=== PATIENT | male | born 1935 | race Asian ===

== ENCOUNTER 2017-01-12 17:22 | Inpatient (IN) | payer BC, OTHER ==
[~2017-01-12] VITALS: Ht 167.6 cm; Wt 65.4 kg
[~2017-01-12 17:22] MED LIST: ASPI81TA28 PO; CALC600T PO; CHOL100010 PO; GLUC15002 PO; LISI-461 PO; LPT40 PO; MULT-513 PO; PLV75 PO
[2017-01-12] MEDS ORDERED: SODIUM CHLORIDE 0.9% 1000ML 1,000 ML IV STA (17:42)
[2017-01-12] MEDS ORDERED: SODIUM CHLORIDE 0.9% 1000ML 500 ML IV STA (17:42)
--- NOTE | 2017-01-12 17:52 | EMERGENCY ROOM VISIT NOTE ---
History Report prepared by Leatha: Juan Phipps Under the Supervision of: Dr. Bayron Oneil M.D. First contact with patient: 17:33 Chief Complaint: DIZZY Stated Complaint: CHEST PAIN, SOB, PALE SKIN History of Present Illness The patient is a 81 year old male who presents to the Emergency Room with complaints of intermittent dizziness beginning three days ago. He states that he has felt very tired for the past three days as well. He states that his dizziness is generally present when he is walking around. The patient states that he had a "very dark" bowel movement two days ago. He has not had a bowel movement since. He has no history of GI bleeding. The patient is on Plavix and aspirin. He had a cardiac stent placed three years ago. He currently feels short of breath. He denies any chest pain, or abdominal pain. The patient's notes that the patient appears very pale. The patient has no history of blood transfusions. Source of History: patient Onset: Three days ago Quality: other (dizziness) Timing: intermittent Modifying Factors (Worsening): other (walking around) Associated Symptoms: + SOB, + fatigue, No abdominal pain, No chest pain Review of Systems See HPI for pertinent positives & negatives. A total of 10 systems reviewed and were otherwise negative. Past Medical & Surgical Medical Problems: (1) Diverticulosis Colon (W/O Ment Of Hemorrhage) (2) Osteoporosis Nos Surgical Problems: (1) History of cholecystectomy Family History Diabetes mellitus Heart disease Social History Smoking Status: Never Smoker Alcohol Use: occasionally Marital Status: Housing Status: lives with family Occupation Status: retired Current/Historical Medications Scheduled Aspirin (Aspirin Ec), 81 MG PO DAILY Atorvastatin (Atorvastatin Calcium), 40 MG PO QAM Calcium Carbonate (Calcium 600), 1 TAB PO DAILY Cholecalciferol (Vitamin D3), 2 TAB PO DAILY Clopidogrel (Plavix), 75 MG PO DAILY Tcwyahmqfac-Avtvkvatflb-Zat C- (Glucosamine 1500 Complex), 1 CAP PO DAILY Lisinopril (Lisinopril), 1 MG PO QPM Multivitamins/Minerals (Mvi With Minerals), 1 TAB PO DAILY Allergies Coded Allergies: NO KNOWN DRUG ALLERGIES (Verified Allergy, Unknown, none, 04/22/14) Physical Exam Vital Signs Date Time Temp Pulse Resp B/P Pulse Ox O2 Delivery O2 Flow Rate FiO2 01/12/17 18:47 76 16 108/59 99 Room Air 01/12/17 17:31 36.7 76 20 134/59 99 Room Air Physical Exam GENERAL: Patient is in no acute distress. HEENT: No acute trauma, normocephalic atraumatic, mucous membranes moist, no nasal congestion, no scleral icterus. NECK: No stridor, no adenopathy, no meningismus, trachea is midline. LUNGS: Clear to auscultation bilaterally, no wheeze, no rhonchi, breath sounds equal. HEART: Without murmurs gallops or rubs, regular rate and rhythm. ABDOMEN: Soft, nontender, bowel sounds positive, no hernias, no peritonitis. RECTAL: Black heme positive stool. EXTREMITIES: No cyanosis or edema, full range of motion of all the joints without pain or difficulty, no signs for acute trauma. NEUROLOGIC: Oriented x 3, no acute motor or sensory deficits, no focal weakness. SKIN: No rash, no jaundice, no diaphoresis. Medical Decision & Procedures ER Provider Diagnostic Interpretation: X-ray results as stated below per interpretation by me and the radiologist: CHEST ONE VIEW PORTABLE FINDINGS: The bones soft tissues and hemidiaphragms are normal. The cardiomediastinal silhouette is normal. The lungs are clear. The pulmonary vasculature is normal. IMPRESSION: Negative chest. Electronically signed by: Juan Daniel Villarreal M.D. Laboratory Results 01/12/17 18:00 Red Blood Count 2.78, Mean Corpuscular Volume 95.7, Mean Corpuscular Hemoglobin 32.0, Mean Corpuscular Hemoglobin Concent 33.5, Mean Platelet Volume 11.0, Neutrophils (%) (Auto) 84.9, Lymphocytes (%) (Auto) 11.1, Monocytes (%) (Auto) 3.8, Eosinophils (%) (Auto) 0.0, Basophils (%) (Auto) 0.1, Neutrophils # (Auto) 6.29, Lymphocytes # (Auto) 0.82, Monocytes # (Auto) 0.28, Eosinophils # (Auto) 0.00, Basophils # (Auto) 0.01 01/12/17 18:00 Test 01/12/17 18:00 White Blood Count 7.41 K/uL (4.8-10.8) Red Blood Count 2.78 M/uL (4.7-6.1) Hemoglobin 8.9 g/dL (14.0-18.0) Hematocrit 26.6 % (42-52) Mean Corpuscular Volume 95.7 fL (80-100) Mean Corpuscular Hemoglobin 32.0 pg (25-34) Mean Corpuscular Hemoglobin Concent 33.5 g/dl (32-36) Platelet Count 210 K/uL (130-400) Mean Platelet Volume 11.0 fL (7.4-10.4) Neutrophils (%) (Auto) 84.9 % Lymphocytes (%) (Auto) 11.1 % Monocytes (%) (Auto) 3.8 % Eosinophils (%) (Auto) 0.0 % Basophils (%) (Auto) 0.1 % Neutrophils # (Auto) 6.29 K/uL (1.4-6.5) Lymphocytes # (Auto) 0.82 K/uL (1.2-3.4) Monocytes # (Auto) 0.28 K/uL (0.11-0.59) Eosinophils # (Auto) 0.00 K/uL (0-0.5) Basophils # (Auto) 0.01 K/uL (0-0.2) RDW Standard Deviation 43.2 fL (36.4-46.3) RDW Coefficient of Variation 12.7 % (11.5-14.5) Immature Granulocyte % (Auto) 0.1 % Immature Granulocyte # (Auto) 0.01 K/uL (0.00-0.02) Hypersegmented Polys 1+ Polychromasia 1+ Anisocytosis PRESENT Anion Gap 7.0 mmol/L (3-11) Est Creatinine Clear Calc Drug Dose 47.5 ml/min Estimated GFR () 72.6 Estimated GFR (Non- 62.6 BUN/Creatinine Ratio 32.9 (10-20) Calcium Level 8.6 mg/dl (8.5-10.1) Total Bilirubin 0.4 mg/dl (0.2-1) Direct Bilirubin 0.2 mg/dl (0-0.2) Aspartate Amino Transf (AST/SGOT) 27 U/L (15-37) Alanine Aminotransferase (ALT/SGPT) 38 U/L (12-78) Alkaline Phosphatase 43 U/L (45-117) Troponin I < 0.015 ng/ml (0-0.045) Total Protein 6.8 gm/dl (6.4-8.2) Albumin 3.6 gm/dl (3.4-5.0) Laboratory results reviewed by me. Medications Administered Medications (Trade) Dose Ordered Sig/Ines Route Start Time Stop Time Status Last Admin Dose Admin Sodium Chloride 500 ml @ 999 mls/hr Q31M STAT IV 01/12/17 17:42 01/12/17 18:12 DC 01/12/17 17:42 999 MLS/HR Pantoprazole Sodium 80 mg/ Dextrose 120 ml @ 480 mls/hr TODAY@1800 IV 01/12/17 18:00 01/12/17 18:14 DC 01/12/17 18:25 480 MLS/HR Pantoprazole Sodium/Dextrose (Protonix Inj/D5 100ml) 100 ml @ 20 mls/hr Q5H IV 01/12/17 18:15 01/12/17 23:14 01/12/17 18:46 20 MLS/HR ECG Indication: other (dizziness) Rate (beats per minute): 72 Rhythm: normal sinus Findings: no acute ischemic change, no ectopy ED Course 1736: The patient was evaluated in room B10. A complete history and physical exam was performed. 1742: Ordered Protonix IV Bolus/Drip, Sodium Chloride 1000 ml @ 200 mls/hr IV, Sodium Chloride 500 ml @ 999 mls/hr IV. 1800: Ordered Pantoprazole Sodium 80 mg/Dextrose 120 ml @ 480 mL/hr IV. 1815: Ordered Pantoprazole Sodium 40 mg/Dextrose 100 mL @ 20 mL/hr IV. 1845: Upon reexamination the patient is resting comfortably. I discussed results and treatment plan with the patient. He verbalizes agreement and understanding. The patient will be evaluated for further management. 1850: The patient gave consent to receive a blood transfusion if it is needed. Medical Decision The patient is a 81 year old male who presents to the ED with complaints of dizziness. Differential diagnoses considered include upper or lower GI bleeding , anemia, cardiac ischemia, electrolyte imbalance, coagulopathy, and dysrhythmia. There is no leukocytosis. The patient is anemic with a hemoglobin of 8.9. This hemoglobin drop is consistent with GI bleeding. There is no significant electrolyte abnormality, kidney failure or hepatitis. EKG shows a normal sinus rhythm, no acute ischemia. Cardiac enzyme testing times one is not consistent with acute cardiac injury. Chest x-ray does not show mediastinal widening, heart failure or free air. Rectal exam showed black stool, heme-positive. The patient presents with some lightheadedness, dizziness, fatigue and black stool. He appears to be suffering from an upper GI bleed. The patient received IV saline, IV Protonix. He was made nothing by mouth. He is doing well at the present. Admission/observation is warranted. I did consent the patient for blood products if needed, at this point, a transfusion is not required. I talked to the patient and to case management. The on-call hospitalist was consulted. Medication Reconciliation: I attest that I have personally reviewed the patient' s current medication list. Blood Pressure Screening: Patient was found to have an elevated blood pressure and was referred to their primary doctor for recheck and further treatment. Consults Time Called: 1840 Consulting Physician: Dr. Jersey RAY Returned Call: 1845 Discussed the patient's case. The patient will be evaluated for further management. Impression Primary Impression: GI bleed Additional Impression: Anemia Scribe Attestation The scribe's documentation has been prepared under my direction and personally reviewed by me in its entirety. I confirm that the note above accurately reflects all work, treatment, procedures, and medical decision making performed by me. Departure Information Dispostion Being Evaluated By Hospitalist Referrals ,Feng Schultz M.D. (PCP) Patient Instructions My [facility] Problem Qualifiers
[2017-01-12] MEDS ORDERED: PANTOprazole INJ 80 MG in DEXTROSE 5% 100ML IV SCH (18:00)
--- NOTE | 2017-01-12 18:05 | DIAGNOSTIC IMAGING REPORT ---
CHEST ONE VIEW PORTABLE CLINICAL HISTORY: EVALUATE GI BLEED dyspnea COMPARISON STUDY: 04/22/2014 FINDINGS: The bones soft tissues and hemidiaphragms are normal. The cardiomediastinal silhouette is normal. The lungs are clear. The pulmonary vasculature is normal. IMPRESSION: Negative chest. Electronically signed by: Juan Daniel Villarreal M.D. 01/12/2017 6:04 PM Dictated Date/Time: 01/12/2017 6:03 PM
[2017-01-12] MEDS ORDERED: CHOL1000 PO ×2 (18:08)
[2017-01-12] MEDS ORDERED: CLOP1TAB15 PO (18:08)
[2017-01-12] MEDS ORDERED: LISI-461 PO (18:08)
[2017-01-12 18:10] LABS: BASO % 0.1 %; BASO ABS # 0.01 K/uL (0-0.2); HEMATOCRIT 26.6 % (42-52); IG% 0.1 %; LYMPH % 11.1 %; LYMPH ABS # 0.82 K/uL (1.2-3.4); MEAN CELL VOLUME 95.7 fL (80-100); MEAN CORPUSCULAR HGB CONC 33.5 g/dl (32-36); MONO % 3.8 %; NEUT % 84.9 %; PLATELET COUNT 210 K/uL (130-400); RED BLOOD COUNT 2.78 M/uL (4.7-6.1); WHITE BLOOD COUNT 7.41 K/uL (4.8-10.8)
[2017-01-12] MEDS ORDERED: PANTOprazole INJ 40 MG in DEXTROSE 5% 100ML IV SCH (18:15)
[2017-01-12 18:29] LABS: ALT/SGPT 38 U/L (12-78); AST/SGOT 27 U/L (15-37); BLOOD UREA NITROGEN 36 mg/dl (7-18); BUN/CREATININE RATIO 32.9 (10-20); CALCIUM 8.6 mg/dl (8.5-10.1); CARBON DIOXIDE 26 mmol/L (21-32); CHLORIDE 111 mmol/L (98-107); GLUCOSE 105 mg/dl (70-99); POTASSIUM 4.3 mmol/L (3.5-5.1); SODIUM 144 mmol/L (136-145)
[2017-01-12 18:34] LABS: ALKALINE PHOSPHATASE 43 U/L (45-117)
[2017-01-12 18:35] LABS: ANISOCYTOSIS PRESENT; COMPLETE YES; HYPERSEGMENTED POLYS 1+; POLYCHROMASIA 1+
[2017-01-12 19:15] LABS: INR 0.9 (0.9-1.1); PARTIAL THROMBOPLASTIN RATIO 0.8; PROTHROMBIN TIME (PATIENT) 10.1 SECONDS (9.0-12.0)
[2017-01-12] MEDS ORDERED: ONDANSETRON INJ 2 MG/ML 2 ML VIAL IV PRN (20:00)
[2017-01-12] MEDS ORDERED: MAGNESIUM HYDROXIDE SUSP 30 ML UDC PO PRN (20:00)
[2017-01-12] MEDS ORDERED: ACETAMINOPHEN 325 MG TAB PO PRN (20:00)
--- NOTE | 2017-01-12 20:00 | History and Physical ---
History & Physical Date & Time of Service: January 12, 2017 at 19:52 Chief Complaint: Chest Pain, Sob, Pale Skin Primary Care Physician: Feng Blount M.D. History of Present Illness Source: patient 81 y/o M c/o lightheadedness. Pt states this started about 3 days ago. On Monday, he noted that his bowel movement was black. No abd pain, n/v/d. He has not had a bowel movement since that time. He generally plays golf 2-3x/week , but has not felt like it. He has been eating without issue. Had breakfast and lunch today without issue. His main concern now is that he is very thirsty. Pt denies fever, SOB, chest pain, LE pain or swelling. No prior hx of bleeding. ROS as noted above, otherwise neg. Past Medical/Surgical History Medical Problems: (1) Diverticulosis Colon (W/O Ment Of Hemorrhage) Status: Chronic (2) Osteoporosis Nos Status: Chronic Surgical Problems: (1) History of cholecystectomy Status: Resolved CAD s/p [place] with stents in 2013, on aspirin/plavix Family History Family history was reviewed; no changes noted. Social History Smoking Status: Never Smoker Alcohol Use: occasionally (1 beer daily at lunch) Drug Use: none Marital Status: Occupational Status: retired Multi-Drug Resistant Organisms History of MDRO: No Allergies Coded Allergies: NO KNOWN DRUG ALLERGIES (Verified Allergy, Unknown, none, 04/22/14) Home Medications Scheduled Aspirin (Aspirin Ec), 81 MG PO DAILY Atorvastatin (Atorvastatin Calcium), 40 MG PO QAM Calcium Carbonate (Calcium 600), 1 TAB PO DAILY Cholecalciferol (Vitamin D3), 2 TAB PO DAILY Clopidogrel (Plavix), 75 MG PO DAILY Levlkzkmypg-Ohpwrsskecb-Lvj C- (Glucosamine 1500 Complex), 1 CAP PO DAILY Lisinopril (Lisinopril), 1 MG PO QPM Multivitamins/Minerals (Mvi With Minerals), 1 TAB PO DAILY Physical Exam Vital Signs Date Time Temp Pulse Resp B/P Pulse Ox O2 Delivery O2 Flow Rate FiO2 01/12/17 19:43 80 18 99/54 97 Room Air 01/12/17 18:47 76 16 108/59 99 Room Air 01/12/17 17:31 36.7 76 20 134/59 99 Room Air General Appearance: WD/WN, no apparent distress Head: normocephalic, atraumatic Respiratory/Chest: normal breath sounds, no respiratory distress Cardiovascular: regular rate, rhythm, no edema Abdomen/GI: non tender, soft Extremities/Musculoskelatal: no calf tenderness, no pedal edema Neurologic/Psych: alert, normal mood/affect Skin: normal color, warm/dry Diagnostics Laboratory Results Results Past 24 Hours Test 01/12/17 18:00 Range/Units White Blood Count 7.41 4.8-10.8 K/uL Red Blood Count 2.78 4.7-6.1 M/uL Hemoglobin 8.9 14.0-18.0 g/dL Hematocrit 26.6 42-52 % Mean Corpuscular Volume 95.7 80-100 fL Mean Corpuscular Hemoglobin 32.0 25-34 pg Mean Corpuscular Hemoglobin Concent 33.5 32-36 g/dl Platelet Count 210 130-400 K/uL Mean Platelet Volume 11.0 7.4-10.4 fL Neutrophils (%) (Auto) 84.9 % Lymphocytes (%) (Auto) 11.1 % Monocytes (%) (Auto) 3.8 % Eosinophils (%) (Auto) 0.0 % Basophils (%) (Auto) 0.1 % Neutrophils # (Auto) 6.29 1.4-6.5 K/uL Lymphocytes # (Auto) 0.82 1.2-3.4 K/uL Monocytes # (Auto) 0.28 0.11-0.59 K/uL Eosinophils # (Auto) 0.00 0-0.5 K/uL Basophils # (Auto) 0.01 0-0.2 K/uL RDW Standard Deviation 43.2 36.4-46.3 fL RDW Coefficient of Variation 12.7 11.5-14.5 % Immature Granulocyte % (Auto) 0.1 % Immature Granulocyte # (Auto) 0.01 0.00-0.02 K/uL Hypersegmented Polys 1+ Polychromasia 1+ Anisocytosis PRESENT Prothrombin Time 10.1 9.0-12.0 SECONDS Prothromb Time International Ratio 0.9 0.9-1.1 Activated Partial Thromboplast Time 19.8 21.0-31.0 SECONDS Partial Thromboplastin Ratio 0.8 Sodium Level 144 136-145 mmol/L Potassium Level 4.3 3.5-5.1 mmol/L Chloride Level 111 98-107 mmol/L Carbon Dioxide Level 26 21-32 mmol/L Anion Gap 7.0 3-11 mmol/L Blood Urea Nitrogen 36 7-18 mg/dl Creatinine 1.10 0.60-1.40 mg/dl Est Creatinine Clear Calc Drug Dose 47.5 ml/min Estimated GFR () 72.6 Estimated GFR (Non- 62.6 BUN/Creatinine Ratio 32.9 10-20 Random Glucose 105 70-99 mg/dl Calcium Level 8.6 8.5-10.1 mg/dl Total Bilirubin 0.4 0.2-1 mg/dl Direct Bilirubin 0.2 0-0.2 mg/dl Aspartate Amino Transf (AST/SGOT) 27 15-37 U/L Alanine Aminotransferase (ALT/SGPT) 38 12-78 U/L Alkaline Phosphatase 43 45-117 U/L Troponin I < 0.015 0-0.045 ng/ml Total Protein 6.8 6.4-8.2 gm/dl Albumin 3.6 3.4-5.0 gm/dl CXR normal Impression Assessment and Plan 81 y/o M who was admitted on 01/12 with UGIB UGIB: noted for black stool on Monday, but none since. Possibly resolved, possibly related to asp/plavix use Hb 8.9 in the ED, will monitor on tele for possible drop given heme + in ED Pt was consented for blood by ED physician Repeat Hb at 10p, with serials Protonix BID Holding asp/plavix but will ideally resume anita given stent hx If Hb increases overnight, may be able to avoid inpt EGD Trop neg x1 B12, folate, iron studies pending CAD: s/p stent as noted Resume asp/plavix when able Holding lisinopril given low normal BP Holding other meds also Other: Full code NPO with sips Avoiding anticoag given possible bleed Level of Care Telemetry VTE Prophylaxis VTE Risk Assessment Done? Y/N: Yes Risk Level: Low
[2017-01-12] MEDS: PANTOprazole INJ 40 MG in SYRINGE 0 ML IV SCH (21:00)
[2017-01-12 21:15] VITALS: BP 108/63; TEMP 36.7; Ht 167.6 cm; Wt 65.4 kg
[2017-01-12] MEDS: D5NSS + 20MEQ KCL 1,000 ML IV SCH (22:03)
[2017-01-12 22:08] LABS: HEMATOCRIT 25.3 % (42-52)
[2017-01-12 22:34] LABS: TOTAL IRON BINDING CAPACITY 266 mcg/dl (250-450)
[2017-01-12 23:21] VITALS: BP 103/60; PULSE 73; TEMP 36.9; O2SAT 99
[2017-01-13] VITALS (18 sets, daily range): BP systolic 102–127; BP diastolic 60–72; PULSE 58–82; TEMP 36.4–37; O2SAT 94–99
[2017-01-13 04:38] LABS: HEMATOCRIT 22.6 % (42-52)
[2017-01-13] MEDS: PANTOprazole INJ 40 MG in SYRINGE 0 ML IV SCH (07:44)
[2017-01-13] MEDS: D5NSS + 20MEQ KCL 1,000 ML IV SCH ×2 (07:44→23:10)
--- NOTE | 2017-01-13 09:35 | Gastrointestinal Consultation ---
Gastrointestinal Consultation Date of Consultation: January 13, 2017 Attending Physician: Dr. Arevalo Consulting Physician: Dr. Gillespie/CÉSAR Tim Reason for Consultation: GIB History of Present Illness Patient is a 81 year old male with a history of CAD status post TX with stent placement in 2013 on chronic aspirin and Plavix therapy presenting to the ER with lightheadedness and melena beginning three days prior to arrival. He denies any chest pain, shortness of breath, LUN[place]ERG, syncope or palpitations. The patient further denies any abdominal pain, nausea or vomiting, hematemesis or hematochezia. States he has been quite hungry as he has been kept NPO since arrival. H&H on arrival was noted to be 8.9 and 26.6 but has since dropped to 7.7 and 22.6. He is resting comfortably at present. Has been placed on Protonix 40 mg IV BID. Past Medical/Surgical History Medical Problems: (1) Anemia Status: Acute (2) GI bleed Status: Acute Past Medical History: 1. Diverticulosis 2. Osteoporosis 3. TX 4. Ascending colon polyp in 2010 Past Surgical History: 1. Cardiac catheterization 2. Complete colonoscopy 3. Cholecystectomy Family History Diabetes mellitus Heart disease Negative for GI malignancy or IBD Social History Smoking Status: Former Smoker Alcohol Use: none Drug Use: none Marital Status: Housing Status: lives with family Occupation Status: retired Allergies Coded Allergies: NO KNOWN DRUG ALLERGIES (Verified Allergy, Unknown, none, 04/22/14) Current Medications Home Meds and Scripts Medications Dose Route/Sig Max Daily Dose Days Date Category Plavix (Clopidogrel Bisulfate) 75 Mg Tab 75 Mg PO DAILY 01/12/17 Reported Vitamin D3 (Cholecalciferol) 1,000 Unit Tab 2 Tab PO DAILY 01/12/17 Reported Lisinopril 10 Mg Tab 1 Mg PO QPM 01/12/17 Reported Atorvastatin Calcium (Atorvastatin) 40 Mg Tab 40 Mg PO QAM 04/24/14 Rx Glucosamine 1500 Complex (Wnvvllphsin-Ndobznkjsvx-Pje C-) 1 Cap Cap 1 Cap PO DAILY 04/22/14 Reported Calcium 600 (Calcium Carbonate) 600 Mg Tab 1 Tab PO DAILY 04/22/14 Reported Mvi With Minerals (Multivitamins/Minerals) Tab 1 Tab PO DAILY 04/22/14 Reported Aspirin Ec (Aspirin) 81 Mg Tab 81 Mg PO DAILY 04/22/14 Reported Review of Systems See HPI for pertinent positives & negatives. A total of 10 systems reviewed and were otherwise negative. Physical Exam Date Time Temp Pulse Resp B/P Pulse Ox O2 Delivery O2 Flow Rate FiO2 01/13/17 08:00 Room Air 01/13/17 07:15 36.5 78 18 122/67 97 01/13/17 04:59 36.5 82 18 104/62 94 Room Air 01/13/17 04:00 Room Air 01/13/17 00:00 Room Air 01/12/17 23:21 36.9 73 18 103/60 99 Room Air 01/12/17 21:15 36.7 18 108/63 Room Air 01/12/17 21:05 82 18 108/63 100 01/12/17 19:43 80 18 99/54 97 Room Air 01/12/17 18:47 76 16 108/59 99 Room Air 01/12/17 17:31 36.7 76 20 134/59 99 Room Air General Appearance: WD/WN, no apparent distress Eyes: normal inspection, EOMI ENT: hearing grossly normal Neck: supple Respiratory/Chest: lungs clear, normal breath sounds, no respiratory distress Cardiovascular: regular rate, rhythm, no gallop, no murmur Abdomen: normal bowel sounds, non tender, soft Extremities: no pedal edema Neurologic/Psych: alert, normal mood/affect, oriented x 3 Skin: warm/dry Laboratory Results Last 24 Hours Test 01/12/17 18:00 01/12/17 22:00 01/13/17 04:15 White Blood Count 7.41 K/uL Red Blood Count 2.78 M/uL Hemoglobin 8.9 g/dL 8.4 g/dL 7.7 g/dL Hematocrit 26.6 % 25.3 % 22.6 % Mean Corpuscular Volume 95.7 fL Mean Corpuscular Hemoglobin 32.0 pg Mean Corpuscular Hemoglobin Concent 33.5 g/dl Platelet Count 210 K/uL Mean Platelet Volume 11.0 fL Neutrophils (%) (Auto) 84.9 % Lymphocytes (%) (Auto) 11.1 % Monocytes (%) (Auto) 3.8 % Eosinophils (%) (Auto) 0.0 % Basophils (%) (Auto) 0.1 % Neutrophils # (Auto) 6.29 K/uL Lymphocytes # (Auto) 0.82 K/uL Monocytes # (Auto) 0.28 K/uL Eosinophils # (Auto) 0.00 K/uL Basophils # (Auto) 0.01 K/uL RDW Standard Deviation 43.2 fL RDW Coefficient of Variation 12.7 % Immature Granulocyte % (Auto) 0.1 % Immature Granulocyte # (Auto) 0.01 K/uL Hypersegmented Polys 1+ Polychromasia 1+ Anisocytosis PRESENT Prothrombin Time 10.1 SECONDS Prothromb Time International Ratio 0.9 Activated Partial Thromboplast Time 19.8 SECONDS Partial Thromboplastin Ratio 0.8 Sodium Level 144 mmol/L Potassium Level 4.3 mmol/L Chloride Level 111 mmol/L Carbon Dioxide Level 26 mmol/L Anion Gap 7.0 mmol/L Blood Urea Nitrogen 36 mg/dl Creatinine 1.10 mg/dl Est Creatinine Clear Calc Drug Dose 47.5 ml/min Estimated GFR () 72.6 Estimated GFR (Non- 62.6 BUN/Creatinine Ratio 32.9 Random Glucose 105 mg/dl Calcium Level 8.6 mg/dl Total Bilirubin 0.4 mg/dl Direct Bilirubin 0.2 mg/dl Aspartate Amino Transf (AST/SGOT) 27 U/L Alanine Aminotransferase (ALT/SGPT) 38 U/L Alkaline Phosphatase 43 U/L Troponin I < 0.015 ng/ml Total Protein 6.8 gm/dl Albumin 3.6 gm/dl Iron Level 60 mcg/dl Total Iron Binding Capacity 266 mcg/dl Vitamin B12 Level 507 pg/mL Folate > 24.00 ng/mL Impression Patient is a 81 year old male with a history of CAD/TX status post stent placement in 2013 on both aspirin and Plavix presenting with symptomatic, acute blood loss anemia and melena. Plan 1. Keep NPO for now. 2. EGD with Dr. Jose Miguel wagner for further evaluation. 3. Continue IV Protonix 40 mg BID. 4. Additional recommendations pending results of testing. Thank you for allowing us to participate in the care of this pleasant patient. If you have any questions or concerns, please do not hesitate to contact us. Agree with CÉSAR Tim as above Abd: Soft, NT, ND, +BS EGD was normal. Advance diet as tolerated If no further Overt GI bleeding, recommend outpatient colonoscopy for further evaluation. Continue PPI therapy Dr. Zee of [facility] will be covering over the weekend. Please contact him with any questions. Thanks.
[2017-01-13 10:22] LABS: HEMATOCRIT 22.6 % (42-52)
[2017-01-13] MEDS ORDERED: LIDOCAINE HCL 2% 2 ML VIAL (20MG/ML) ONE (14:15)
[2017-01-13] MEDS ORDERED: ONDANSETRON INJ 2 MG/ML 2 ML VIAL ONE (14:15)
[2017-01-13] MEDS ORDERED: PROPOFOL IV EMULSION 10 MG/ML 20 ML VIAL IV ONE (14:15)
[2017-01-13] MEDS ORDERED: MIDAZOLAM HCL 1 MG/ML 2ML VIAL ONE (14:15)
--- NOTE | 2017-01-13 14:22 | GI REPORT ---
Procedure Date: 01/13/2017 2:07 PM Procedure: Upper GI endoscopy Indications: Acute post hemorrhagic anemia, Melena Medicines: Monitored Anesthesia Care Complications: No immediate complications. Estimated Blood Loss: Estimated blood loss: none. Procedure: Pre-Anesthesia Assessment: - Prior to the procedure, a History and Physical was performed, and patient medications and allergies were reviewed. The patient's tolerance of previous anesthesia was also reviewed. The risks and benefits of the procedure and the sedation options and risks were discussed with the patient. All questions were answered, and informed consent was obtained. Prior Anticoagulants: The patient last took aspirin 1 day and Plavix (clopidogrel) 1 day prior to the procedure. ASA Grade Assessment: III - A patient with severe systemic disease. After reviewing the risks and benefits, the patient was deemed in satisfactory condition to undergo the procedure. After obtaining informed consent, the endoscope was passed under direct vision. Throughout the procedure, the patient's blood pressure, pulse, and oxygen saturations were monitored continuously. The scope was introduced through the mouth, and advanced to the second part of duodenum. The upper GI endoscopy was accomplished without difficulty. The patient tolerated the procedure well. Findings: The esophagus was normal. The stomach was normal. The examined duodenum was normal. Impression: - Normal esophagus. - Normal stomach. - Normal examined duodenum. - No specimens collected. Recommendation: - [facility] to [facility]. - Advance diet as tolerated. - Continue present medications. - Perform a colonoscopy at appointment to be scheduled. Nura Gillespie DO 01/13/2017 2:22:24 PM This report has been signed electronically. Note Initiated On: 01/13/2017 2:07 PM I attest to the content of the Intraoperative Record and orders documented therein, exceptions below
--- NOTE | 2017-01-13 14:42 | Anesthesiology Progress Note ---
Anesthesia Post Op Note Date & Time January 13, 2017 at 14:42 Vital Signs Pain Intensity: 0 Vital Signs Past 12 Hours Date Time Temp Pulse Resp B/P Pulse Ox O2 Delivery O2 Flow Rate FiO2 01/13/17 14:27 61 20 107/58 98 Room Air 01/13/17 12:51 36.9 71 20 119/59 98 Room Air 01/13/17 12:00 Room Air 01/13/17 08:00 Room Air 01/13/17 07:15 36.5 78 18 122/67 97 01/13/17 04:59 36.5 82 18 104/62 94 Room Air 01/13/17 04:00 Room Air Notes Mental Status: alert / awake / arousable, participated in evaluation Pt Amnestic to Procedure: Yes Nausea / Vomiting: adequately controlled Pain: adequately controlled Airway Patency, RR, SpO2: stable & adequate BP & HR: stable & adequate Hydration State: stable & adequate Anesthetic Complications: no major complications apparent
[2017-01-13 16:04] LABS: HEMATOCRIT 22.2 % (42-52)
--- NOTE | 2017-01-13 20:55 | Progress Note ---
Subjective Date of Service: January 13, 2017. Subjective Pt evaluation today including: conversation w/ patient, conversation w/ family ( at bedside), physical exam, chart review, lab review, review of studies ( EGD), conversation w/ consultant education (GI), review of inpatient medication list Pain: denies abd pain PO Intake: npo Voiding: no voiding problems tele stable overnight he denies any c/o stomach upset, ongoing melena, hematemesis Problem List Medical Problems: (1) Anemia Status: Acute (2) GI bleed Status: Acute Review of Systems Constitutional: No fever Respiratory: No shortness of breath Cardiac: No chest pain, No orthopnea Abdomen: No pain Objective Vital Signs Date Time Temp Pulse Resp B/P Pulse Ox O2 Delivery O2 Flow Rate FiO2 01/13/17 20:00 36.8 62 18 109/67 98 01/13/17 19:40 36.5 62 18 127/68 98 01/13/17 19:26 36.4 74 18 112/68 99 0.0 01/13/17 19:00 36.6 70 18 110/63 98 01/13/17 18:00 36.8 76 18 124/72 99 01/13/17 17:35 36.7 70 18 113/64 98 01/13/17 17:02 36.6 71 18 119/65 01/13/17 16:45 36.4 59 16 107/61 97 01/13/17 16:30 36.4 63 16 108/61 98 0.0 01/13/17 16:00 99 Room Air 01/13/17 15:39 36.9 66 18 120/61 99 Room Air 01/13/17 14:47 75 20 98/43 98 Room Air 01/13/17 14:37 64 20 107/58 99 Room Air 01/13/17 14:27 61 20 107/58 98 Room Air 01/13/17 12:51 36.9 71 20 119/59 98 Room Air 01/13/17 12:00 Room Air 01/13/17 08:00 Room Air 01/13/17 07:15 36.5 78 18 122/67 97 01/13/17 04:59 36.5 82 18 104/62 94 Room Air 01/13/17 04:00 Room Air 01/13/17 00:00 Room Air 01/12/17 23:21 36.9 73 18 103/60 99 Room Air 01/12/17 21:15 36.7 18 108/63 Room Air 01/12/17 21:05 82 18 108/63 100 Physical Exam General Appearance: no apparent distress ENT: pharynx normal Neck: no JVD Respiratory/Chest: lungs clear, no respiratory distress, no accessory muscle use Cardiovascular: regular rate, rhythm, no gallop, no murmur Abdomen: normal bowel sounds, non tender, soft, no organomegaly Extremities: no pedal edema Neurologic/Psychiatric: alert, oriented x 3 Skin: + pallor Laboratory Results Last 24 Hours Test 01/12/17 22:00 01/13/17 04:15 01/13/17 10:08 01/13/17 15:55 Hemoglobin 8.4 g/dL 7.7 g/dL 7.7 g/dL 7.7 g/dL Hematocrit 25.3 % 22.6 % 22.6 % 22.2 % Iron Level 60 mcg/dl Total Iron Binding Capacity 266 mcg/dl Vitamin B12 Level 507 pg/mL Folate > 24.00 ng/mL Assessment and Plan 81yo male: 1. acute blood loss anemia - EGD today by Dr. Gillespie wnl. No source of bleeding found. Colonoscopy in future recommended. If that is found to be negative then capsule endoscopy? Change PPI from IV to po. Allow clear liquid diet. Hold asa/plavix at least 1 more day. Tx 2 units PRBCs in light of symptoms (dizziness) as well as CAD. 2. CAD - noted; no signs of ACS. 3. HTN - hold ALTA. 4. DVT proph - SCDs. 5. FEN - cont IVF, repeat BMP in am, lytes stable at this time, clear liquids. updated at bedside Continued [facility] stay due to: multiple IV medications needed Discharge planning: home
[2017-01-14 04:43] VITALS: BP 123/71; PULSE 56; TEMP 36.4; O2SAT 95
[2017-01-14 07:18] VITALS: BP 121/67; PULSE 60; TEMP 36.9; O2SAT 97
[2017-01-14 07:34] LABS: HEMATOCRIT 29.2 % (42-52); MEAN CELL VOLUME 93.3 fL (80-100); MEAN CORPUSCULAR HEMOGLOBIN 31.3 pg (25-34); MEAN CORPUSCULAR HGB CONC 33.6 g/dl (32-36); MEAN PLATELET VOLUME 10.4 fL (7.4-10.4); PLATELET COUNT 149 K/uL (130-400); RED BLOOD COUNT 3.13 M/uL (4.7-6.1); WHITE BLOOD COUNT 5.84 K/uL (4.8-10.8)
[2017-01-14] MEDS: D5NSS + 20MEQ KCL 1,000 ML IV SCH (07:53)
[2017-01-14 08:47] LABS: BUN/CREATININE RATIO 18.5 (10-20); CALCIUM 7.4 mg/dl (8.5-10.1); CREATININE 0.78 mg/dl (0.60-1.40); POTASSIUM 4.1 mmol/L (3.5-5.1)
[2017-01-14] MEDS ORDERED: PANTOprazole SOD 40 MG TAB PO SCH (09:00)
[2017-01-14 11:29] VITALS: BP 127/72; PULSE 59; TEMP 36.8; O2SAT 98
[2017-01-14 15:03] VITALS: BP 121/63; PULSE 57; TEMP 36.5; O2SAT 96
[2017-01-14] MEDS ORDERED: FRRS300 PO ×2 (17:40)
[2017-01-14] MEDS ORDERED: PRT40 PO ×2 (17:40)
[2017-01-14 17:43] VITALS: BP 121/63; PULSE 57; TEMP 36.5; O2SAT 96
--- NOTE | 2017-01-14 17:50 | Discharge Instructions ---
Discharge Instructions Date of Service January 14, 2017. Admission Reason for Admission: Gi Bleed Discharge Discharge Diagnosis / Problem: GI bleeding - resolved. Upper endoscopy was normal. 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 Instructions / Follow-Up Instructions / Follow-Up From Dr. Arevalo - 1. Please HOLD your aspirin and plavix. We may be able to resume your baby aspirin soon. 2. Please HOLD your lisinopril for now. This can likely be resumed sometime later this week. 3. Please START protonix (pantoprazole) 40mg once daily every AM on empty stomach. 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 4. Please START iron supplement and take for 1-2 months. Your family doctor will tell you when to stop this. You can buy ferrous sulfate 325mg tablets [id number]. Take 1 tablet in the AM with a glass of orange juice and 1 tablet in the evening with a glass of orange juice. Iron can cause constipation and turn your stool dark. 5. Please stop alcohol consumption for now until additional GI work-up is completed. 6. Please avoid all forms of anti-inflammatory drugs -- motrin, ibuprofen, aleve, naprosyn. Tylenol IS ok for minor aches and pain. 7. Please come to [facility] TOMORROW AM to the MAIN ENTRANCE for a blood draw. I will call you with your CBC results. 8. Diet - eat a balanced diet at home; avoid excessive amounts of spicy foods, fried foods, or caffeinated beverages. 9. We will get in touch with you this coming week to schedule your colonoscopy with Dr. Gillespie from [facility]. Return to [facility] with any recurrent dizziness, concerns of GI bleeding, chest pain, shortness of breath, etc. Current Hospital Diet Patient's current hospital diet: AHA Diet (Heart Healthy) Discharge Diet Recommended Diet: AHA Diet (Heart Healthy) Procedures Procedures Performed: EGD (upper endoscopy) - normal, no source for the GI bleeding. Blood transfusion x 2 units. Pending Studies Studies pending at discharge: no Medical Emergencies . Who to Call and When: Medical Emergencies: If at any time you feel your situation is an emergency, please call 911 immediately. . Non-Emergent Contact Non-Emergency issues call your: Primary Care Provider Call Non-Emergent contact if: temperature is above 100.5, you have any medication questions .Concerns of recurrent GI bleeding, dizziness, lightheadedness, chest pain, etc. . "Provider Documentation" section prepared by Natan Arevalo. . VTE Core Measure Inpt VTE Proph given/why not?: SCD's
--- NOTE | 2017-01-16 21:39 | Discharge Summary ---
Discharge Summary Date of Service January 16, 2017. Discharge Summary Admission Date: January 12, 2017 at 19:50 Discharge Date: January 14, 2017 Discharge Disposition: Home Principal Diagnosis: acute blood loss anemia Problems/Secondary Diagnoses: 1. GI bleeding - uncertain source - additional outpatient work-up to occur 2. CAD with prior h/o ME in 2013 3. hyperlipidemia Procedures: 1. EGD - Dr. Nura Gillespie - completely normal with no source of bleeding found. 2. PRBCs x 2 units. Consultations: gastroenterology - Nura Gillespie, DO Medication Reconciliation New Medications: Ferrous Sulfate (Ferrous Sulfate) 325 Mg Tab 325 MG PO BID, #60 2 Refills Pantoprazole (Pantoprazole Sodium) 40 Mg Tab 40 MG PO QAM, #30 TAB 2 Refills Continued Medications: Atorvastatin (Atorvastatin Calcium) 40 Mg Tab 40 MG PO QAM, #30 TAB 11 Refills Calcium Carbonate (Calcium 600) 600 Mg Tab 1 TAB PO DAILY Cholecalciferol (Vitamin D3) 1,000 Unit Tab 2 TAB PO DAILY Ogflcritzir-Xnphslpyxyi-Pjg C- (Glucosamine 1500 Complex) 1 Cap Cap 1 CAP PO DAILY Multivitamins/Minerals (Mvi With Minerals) Tab 1 TAB PO DAILY, TAB Discontinued Medications: Aspirin (Aspirin Ec) 81 Mg Tab 81 MG PO DAILY Clopidogrel (Plavix) 75 Mg Tab 75 MG PO DAILY Lisinopril (Lisinopril) 10 Mg Tab 1 MG PO QPM Referrals At Discharge Follow up Referrals: Director Of Event Sales Referral - First Available with Nura Gillespie D.O. Discharge Exam Physical Exam: General Appearance: WD/WN, no apparent distress ENT: pharynx normal Neck: no JVD Respiratory/Chest: lungs clear, no respiratory distress, no accessory muscle use Cardiovascular: regular rate, rhythm, no gallop, no murmur, normal peripheral pulses Abdomen / GI: normal bowel sounds, non tender, soft, no organomegaly Extremities: no pedal edema Neurologic/Psychiatric: alert, oriented x 3 Skin: no rash Hospital Course HISTORY OF PRESENT ILLNESS: 81yo male with h/o CAD s/p ME in 2013 who presented with a complaint of lightheadedness. Patient stated this started about 3 days prior. On Monday he noted that his bowel movement was black. Denied abd pain, nausea, emesis, or diarrhea. He generally plays golf 2-3x/week but felt too weak to do so recently. He had been eating without issue. Had breakfast and lunch today without issue. Patient denied fever, SOB, chest pain, LE pain or swelling. No prior history of GI bleeding. He confirmed he takes aspirin and plavix for his CAD. Has 1 beer/day. No other NSAID use. HOSPITAL COURSE: After admission to the telemetry unit the patient remained hemodynamically stable. Aspirin and plavix were held. He had no ischemic symptoms while here. Lowest hemoglobin on serial CBCs was 7.7. Due to his known CAD as well as dizziness he was transfused 2 units of PRBCs without incident. IV PPI was employed during his stay as well. He was seen in consult by Dr. Nura Gillespie, [facility], and subsequently underwent EGD. EGD did NOT show a source of bleeding and was entirely normal. Following his EGD he was resumed on a clear liquid diet and this was advanced without difficulty. He had no further acute bleeding as evidenced by stable hemoglobins. Discharge hemoglobin was 10.5. At discharge the following were recommended: 1. repeat CBC on 01/15/17 as an outpatient 2. if CBC remains stable then he will be instructed to resume his aspirin (but hold his plavix) 3. start iron supplementation twice daily 4. hold his lisinopril due to normal or low-normal BPs seen throughout his hospitalization 5. follow-up with Dr. Gillespie within 1-2 weeks of discharge to arrange colonoscopy 6. once daily PPI Total Time Spent: Greater than 30 minutes This includes examination of the patient, discharge planning, medication reconciliation, and communication with other providers. Discharge Instructions Please refer to the electronic Patient Visit Report (Discharge Instructions) for additional information. Follow-Up 1. Dr. Blount - PCP - within [address] Gillespie - [facility] - within 1-2 weeks for colonoscopy 3. repeat cbc on January 15 at [facility] Additional Copies To Nura Gillespie D.O.; Raman Resendiz MD; Feng Blount M.D.
--- NOTE | 2017-01-18 12:33 | EDITING REQUIRED CODING QUERY ---
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 Please assist us with the question(s) below: Coding Question(s): Please clarify below, in your clinical opinion, regarding the likely source of the GI Bleeding. ( ) GI Bleeding is a hemorrhagic disorder likely caused by the Aspirin and Plavix use ( x ) GI Bleeding is from Unknown source - exacerbated by use of aspirin and Plavix. ( ) GI Bleeding is from other source(s) - Please specify Physician's Response(s): Thank you Adeola Gooden Principal Diagnosis: "_that condition established after study, to be chiefly responsible for occasioning the admission of the patient to the hospital for care." Co-Existing Principal Diagnosis: "_when two or more diagnoses equally meet the criteria for principal diagnosis as determined by the circumstances of admission, diagnostic work up, and/or therapy provided, and the Alphabetic Index, Tabular List, or another coding guideline does not provide sequencing direction, any one of the diagnoses may be sequenced first." "When the physician has documented what appears to be a current diagnosis in the body of the record, but has not included the diagnosis in the final diagnostic statement, the physician should be asked whether the diagnosis should be added." (Source Coding Clinic 2 QTR90. p3-4)
[2017-02-09] MEDS ORDERED: FERR1TAB13 PO (13:30)
[2017-02-09] MEDS ORDERED: LISI-461 PO (13:30)
[2017-02-09] MEDS ORDERED: PANT40TA PO (13:30)
[2017-02-09] MEDS ORDERED: ATOR-24 PO (13:30)
== END 2017-01-14 17:56 | disposition home or self-care (01) | DRG 378 ==
LOC: ENRESERVDT → ENRESERVTM → C.EDB 17:23 → C.MED 19:50
PROVIDERS: ADMIT Family Medicine; ATTEND Internal Medicine
PROC: 0DJ08ZZ Inspection of Upper Intestinal Tract, Via Natural or Artificial Opening Endoscopic (ICD-10-PCS; principal; 2017-01-13 14:00)
DX: K92.2 Gastrointestinal hemorrhage, unspecified (principal); D62 Acute posthemorrhagic anemia; T39.015A Adverse effect of aspirin, initial encounter; T45.8X5A Adverse effect of other primarily systemic and hematological agents, initial encounter; I25.10 Atherosclerotic heart disease of native coronary artery without angina pectoris; I25.2 Old myocardial infarction; I11.9 Hypertensive heart disease without heart failure; M81.0 Age-related osteoporosis without current pathological fracture; E78.5 Hyperlipidemia, unspecified; Z79.899 Other long term (current) drug therapy; Z79.02 Long term (current) use of antithrombotics/antiplatelets; Z79.82 Long term (current) use of aspirin; Z86.010 Personal history of colon polyps; Z87.19 Personal history of other diseases of the digestive system; Z95.5 Presence of coronary angioplasty implant and graft; Z87.891 Personal history of nicotine dependence; Z83.3 Family history of diabetes mellitus; Z82.49 Family history of ischemic heart disease and other diseases of the circulatory system

== ENCOUNTER → 2017-01-15 | Outpatient (CLI) | payer BC ==
[~2017-01-15] MED LIST changes: -ASPI81TA28 PO; +ATOR-24 PO; +CHOL1000 PO; -CHOL100010 PO; +FERR1TAB13 PO; +FRRS300 PO; +PANT40TA PO; -PLV75 PO; +PRT40 PO
[2017-01-15 09:30] LABS: HEMATOCRIT 32.8 % (42-52); MEAN CELL VOLUME 94.3 fL (80-100); MEAN CORPUSCULAR HEMOGLOBIN 32.5 pg (25-34); MEAN CORPUSCULAR HGB CONC 34.5 g/dl (32-36); MEAN PLATELET VOLUME 10.5 fL (7.4-10.4); PLATELET COUNT 187 K/uL (130-400); RED BLOOD COUNT 3.48 M/uL (4.7-6.1); WHITE BLOOD COUNT 4.42 K/uL (4.8-10.8)
--- NOTE | 2017-01-15 17:29 | Progress Note ---
Progress Note Date of Service January 15, 2017. Progress Note 9548 Called and spoke with pt's . Gave her results of CBC (hb 11.3). She reports her is doing well. Told her I had spoken with multiple GI physicians regarding the question of whether to resume aspirin and/or plavix. At this time I recommended 81mg of aspirin ONLY and to HOLD the plavix. She voiced understanding. Natan Arevalo MD
== END | disposition home or self-care (01) ==
LOC: C.LAB 08:57
PROVIDERS: ATTEND Internal Medicine
DX: D64.9 Anemia, unspecified (principal)

== ENCOUNTER → 2017-01-18 | Outpatient (CLI) | payer BC ==
[~2017-01-18] MED LIST changes: +ASPI81TA28 PO; +CHOL100010 PO; +CLOP1TAB15 PO; +PLV75 PO
[2017-01-18 10:59] LABS: BLOOD UREA NITROGEN 16 mg/dl (7-18); BUN/CREATININE RATIO 14.9 (10-20); CALCIUM 8.7 mg/dl (8.5-10.1); CARBON DIOXIDE 30 mmol/L (21-32); CHLORIDE 108 mmol/L (98-107); GLUCOSE 98 mg/dl (70-99); POTASSIUM 4.7 mmol/L (3.5-5.1); SODIUM 143 mmol/L (136-145)
[2017-01-18 11:02] LABS: CHOLESTEROL 103 mg/dl (0-200); CHOLESTEROL/HDL RATIO 2.3; HDL CHOLESTEROL 45 mg/dl; LDL CHOLESTEROL CALCULATED 36 mg/dl; TRIGLYCERIDES 112 mg/dl (0-150); VERY LOW DENSITY LIPOPROT CALC 22 mg/dl
== END | disposition home or self-care (01) ==
LOC: C.LABBC 07:41
PROVIDERS: ATTEND Internal Medicine
DX: I10 Essential (primary) hypertension (principal); M85.80 Other specified disorders of bone density and structure, unspecified site; E78.5 Hyperlipidemia, unspecified

== ENCOUNTER → 2017-01-19 | Outpatient (CLI) | payer BC ==
[2017-01-19 13:18] LABS: BASO % 0.5 %; BASO ABS # 0.02 K/uL (0-0.2); COMPLETE YES; EOS % 0.8 %; HEMATOCRIT 34.9 % (42-52); IG% 0.3 %; LYMPH % 23.9 %; LYMPH ABS # 0.88 K/uL (1.2-3.4); MEAN CELL VOLUME 96.4 fL (80-100); MEAN CORPUSCULAR HGB CONC 33.2 g/dl (32-36); MEAN PLATELET VOLUME 10.5 fL (7.4-10.4); MONO % 5.7 %; NEUT % 68.8 %; PLATELET COUNT 236 K/uL (130-400); RED BLOOD COUNT 3.62 M/uL (4.7-6.1); WHITE BLOOD COUNT 3.68 K/uL (4.8-10.8)
== END | disposition home or self-care (01) ==
LOC: C.LAB1850 11:47
PROVIDERS: ATTEND Internal Medicine
DX: K92.2 Gastrointestinal hemorrhage, unspecified (principal)

== ENCOUNTER → 2017-02-10 | Outpatient (CLI) | payer BC ==
[~2017-02-10] MED LIST changes: -ASPI81TA28 PO; -CHOL100010 PO; -CLOP1TAB15 PO; -FRRS300 PO; -LPT40 PO; -PLV75 PO; -PRT40 PO
[2017-02-10 12:13] LABS: BASO % 0.2 %; BASO ABS # 0.01 K/uL (0-0.2); COMPLETE YES; EOS % 0.2 %; HEMATOCRIT 38.8 % (42-52); IG% 0.2 %; LYMPH % 6.4 %; LYMPH ABS # 0.32 K/uL (1.2-3.4); MEAN CELL VOLUME 95.1 fL (80-100); MEAN CORPUSCULAR HEMOGLOBIN 32.1 pg (25-34); MEAN CORPUSCULAR HGB CONC 33.8 g/dl (32-36); MEAN PLATELET VOLUME 10.6 fL (7.4-10.4); MONO % 8.6 %; NEUT % 84.4 %; PLATELET COUNT 124 K/uL (130-400); RED BLOOD COUNT 4.08 M/uL (4.7-6.1); WHITE BLOOD COUNT 5.02 K/uL (4.8-10.8)
== END | disposition home or self-care (01) ==
LOC: C.LAB1850 10:51
PROVIDERS: ATTEND Internal Medicine
DX: D64.9 Anemia, unspecified (principal)

== ENCOUNTER → 2017-02-15 | Day surgery (SDC) | payer BC ==
[2017-02-09 13:31] VITALS: BMI 23.0
[~2017-02-15] VITALS: Ht 165.1 cm; Wt 64.5 kg
[~2017-02-15] MED LIST changes: +LIDOCAINE HCL 2% 2 ML VIAL (20MG/ML) ONE; +PROPOFOL IV EMULSION 10 MG/ML 20 ML VIAL IV ONE; +SODIUM CHLORIDE 0.9% 500ML 500 ML IV ONE
[2017-02-15 13:32] VITALS: Ht 165.1 cm; Wt 64.5 kg
--- NOTE | 2017-02-15 14:02 | Endo History and Physical ---
History & Physical Date of Service: Feb 15, 2017. Chief Complaint: ANEMIA Referring Physician: DR. VARGAS History of Present Illness 81 yo male who presents for colonoscopy secondary to anemia. Past Surgical History Hx Cardiac Surgery: No Hx Internal Defibrillator: No Hx Pacemaker: No Hx Abdominal Surgery: Yes (OPEN [facility]RISTIE) Hx of Implantable Prosthesis: No Hx Post-Op Nausea and Vomiting: No Hx Cancer Surgery: No Hx Thoracic Surgery: No Hx Orthopedic: No Hx Urinary Tract Surgery: No Family History None Social History Smoking Status: Never Smoker Hx Substance Use: No Hx Alcohol Use: Yes (MAY HAVE A BEER) Allergies Coded Allergies: NO KNOWN DRUG ALLERGIES (Verified Allergy, Unknown, none, 02/15/17) Current Medications Reported Home Medications Medications Dose Route/Sig Max Daily Dose Days Date Category Kp Ferrous Sulfate (Ferrous Sulfate) 325 Mg Tab 1 Tab PO BID 02/09/17 Reported Zestril (Lisinopril) 10 Mg Tab 10 Mg PO QAM 02/09/17 Reported Protonix (Pantoprazole Sodium) 40 Mg Tab 40 Mg PO QAM 02/09/17 Reported Lipitor (Atorvastatin Calcium) 40 Mg Tab 40 Mg PO HS 02/09/17 Reported Vitamin D3 (Cholecalciferol) 1,000 Unit Tab 2 Tab PO QAM 01/12/17 Reported Glucosamine 1500 Complex (Eehaheafbbv-Mxcdblwwkhx-Tux C-) 1 Cap Cap 1 Cap PO QAM 04/22/14 Reported Calcium 600 (Calcium Carbonate) 600 Mg Tab 1 Tab PO QAM 04/22/14 Reported Mvi With Minerals (Multivitamins/Minerals) Tab 1 Tab PO QAM 04/22/14 Reported Vital Signs Weight (Kilograms): 64.55 Height (Feet): 5 Height (Inches): 5 Date Time Temp Pulse Resp B/P (MAP) Pulse Ox O2 Delivery O2 Flow Rate FiO2 02/15/17 13:45 37.1 99 16 156/88 (110) 97 Room Air Physical Exam General Appearance: WD/WN, no apparent distress Respiratory/Chest: Auscultation: breath sounds normal Cardiovascular: Heart Auscultation: RRR Abdomen: Bowel Sounds: normal Inspection & Palpation: soft, non-distended, no tenderness, guarding & rebound Assessment and Plan Assessment: 81 yo male who presents for colonoscopy secondary to anemia. Plan: Proceed with colonoscopy.
--- NOTE | 2017-02-15 14:29 | Discharge Instructions ---
Endoscopy Patient Instructions Date / Procedure(s) Performed Feb 15, 2017. Colonoscopy Allergy Information Coded Allergies: NO KNOWN DRUG ALLERGIES (Verified Allergy, Unknown, none, 02/15/17) Discharge Date / Findings Feb 15, 2017. Colon polyps Internal hemorrhoids Medication Instructions OK to resume all medications today as prescribed. Reported Home Medications Medications Dose Route/Sig Max Daily Dose Days Date Category Kp Ferrous Sulfate (Ferrous Sulfate) 325 Mg Tab 1 Tab PO BID 02/09/17 Reported Zestril (Lisinopril) 10 Mg Tab 10 Mg PO QAM 02/09/17 Reported Protonix (Pantoprazole Sodium) 40 Mg Tab 40 Mg PO QAM 02/09/17 Reported Lipitor (Atorvastatin Calcium) 40 Mg Tab 40 Mg PO HS 02/09/17 Reported Vitamin D3 (Cholecalciferol) 1,000 Unit Tab 2 Tab PO QAM 01/12/17 Reported Glucosamine 1500 Complex (Ezppazdmcxu-Ixgefhtghtw-The C-) 1 Cap Cap 1 Cap PO QAM 04/22/14 Reported Calcium 600 (Calcium Carbonate) 600 Mg Tab 1 Tab PO QAM 04/22/14 Reported Mvi With Minerals (Multivitamins/Minerals) Tab 1 Tab PO QAM 04/22/14 Reported Provider Instructions Activity Restrictions - No exercising or heavy lifting for 24 hours. - Do not drink alcohol the day of the procedure. - Do not drive a car or operate machinery until the day after the procedure. - Do not make any important decisions or sign important papers in 24 hours after the procedure. Following Day: - Return to full activity which may include returning to work/school. Diet Start your diet with liquids and light foods (jello, soup, juice, toast). Then eat your usual diet if not nauseated. Treatment For Common After Affects For mild abdominal pain, bloating, or excessive gas: - Rest - Eat lightly - Lie on right side Follow-Up Information Follow-up with DR. VARGAS as scheduled Anesthesia Information What You Should Know You have had a procedure that required some medicine to reduce anxiety and discomfort. This treatment is called moderate sedation. After receiving the treatment, you may be sleepy, but you will be able to breathe on your own. The effects of the treatment may last for several hours. Follow these instructions along with Activity/Diet recommendations noted above: * Do NOT do anything where dizziness or clumsiness would be dangerous. * Rest quietly at home today, then you can be up and about tomorrow. * Have a responsible person stay with you the rest of today. * You may have had an I.V. today. If so, you may take the dressing off later today. Recommendations Call your doctor if: * Trouble breathing * Continuous vomiting for more than 24 hours * Temperature above 101 degrees * Severe abdominal pain or bloating * Pain not relieved by pain medicine ordered * There is increased drainage or redness from any incision * A large amount of rectal bleeding greater than 2-3 tablespoons. (If you had a polyp/s removed or have hemorrhoids, a small amount of blood - from the rectum is to be expected.) * You have any unanswered questions or concerns. IN THE EVENT OF A SERIOUS EMERGENCY, GO TO THE NEAREST EMERGENCY ROOM Your discharge instructions were prepared by provider Nura Gillespie. Patient Instructions Signature Page Stalin De Patient (or Guardian) Signature/Date: I have read and understand the instructions given to me by my caregivers. Caregiver/RN/Doctor Signature/Date: The above-named patient and/or guardian has received patient instructions on this date. + Original Patient Signature Page (only) stays with chart. Please make copy for patient.
--- NOTE | 2017-02-15 14:39 | GI REPORT ---
Procedure Date: 02/15/2017 1:40 PM Procedure: Colonoscopy Indications: Iron deficiency anemia Medicines: Monitored Anesthesia Care Complications: No immediate complications. Estimated Blood Loss: Estimated blood loss: none. Procedure: Pre-Anesthesia Assessment: - Prior to the procedure, a History and Physical was performed, and patient medications and allergies were reviewed. The patient's tolerance of previous anesthesia was also reviewed. The risks and benefits of the procedure and the sedation options and risks were discussed with the patient. All questions were answered, and informed consent was obtained. Prior Anticoagulants: The patient has taken no previous anticoagulant or antiplatelet agents. ASA Grade Assessment: III - A patient with severe systemic disease. After reviewing the risks and benefits, the patient was deemed in satisfactory condition to undergo the procedure. After I obtained informed consent, the scope was passed under direct vision. Throughout the procedure, the patient's blood pressure, pulse, and oxygen saturations were monitored continuously. The scope was introduced through the anus and advanced to the terminal ileum. The colonoscopy was performed without difficulty. The patient tolerated the procedure well. The quality of the bowel preparation was good. The terminal ileum, ileocecal valve, appendiceal orifice, and rectum were photographed. Findings: Three sessile polyps were found in the rectum, in the sigmoid colon and in the ascending colon. The polyps were 4 to 6 mm in size. These polyps were removed with a hot snare. Resection and retrieval were complete. Non-bleeding internal hemorrhoids were found during retroflexion. The hemorrhoids were small. Impression: - Three 4 to 6 mm polyps in the rectum, in the sigmoid colon and in the ascending colon, removed with a hot snare. Resected and retrieved. - Non-bleeding internal hemorrhoids. Recommendation: - Resume previous diet. - Continue present medications. - Repeat colonoscopy for surveillance based on pathology results. - Return to primary care physician as previously scheduled. Nura Gillespie DO 02/15/2017 2:39:06 PM This report has been signed electronically. Note Initiated On: 02/15/2017 1:40 PM I attest to the content of the Intraoperative Record and orders documented therein, exceptions below
[2017-02-15 14:55] VITALS: BP 120/75; PULSE 64; O2SAT 99
--- NOTE | 2017-02-15 14:58 | Anesthesiology Progress Note ---
Anesthesia Post Op Note Date & Time Feb 15, 2017 at 14:58 Vital Signs Pain Intensity: 0 Vital Signs Past 12 Hours Date Time Temp Pulse Resp B/P (MAP) Pulse Ox O2 Delivery O2 Flow Rate FiO2 02/15/17 14:55 64 20 120/75 (90) 99 Room Air 02/15/17 14:40 65 18 149/83 (105) 98 Room Air 02/15/17 14:25 61 16 116/67 (83) 97 Room Air 02/15/17 13:45 37.1 99 16 156/88 (110) 97 Room Air Notes Mental Status: alert / awake / arousable, participated in evaluation Pt Amnestic to Procedure: Yes Nausea / Vomiting: adequately controlled Pain: adequately controlled Airway Patency, RR, SpO2: stable & adequate BP & HR: stable & adequate Hydration State: stable & adequate Anesthetic Complications: no major complications apparent
== END | disposition home or self-care (01) ==
LOC: C.GI 12:26
PROVIDERS: ATTEND Internal Medicine
DX: D50.9 Iron deficiency anemia, unspecified (principal); K62.1 Rectal polyp; D12.5 Benign neoplasm of sigmoid colon; D12.2 Benign neoplasm of ascending colon; Z90.49 Acquired absence of other specified parts of digestive tract

== ENCOUNTER → 2017-03-07 | Outpatient (CLI) | payer BC ==
[~2017-03-07] MED LIST changes: -LIDOCAINE HCL 2% 2 ML VIAL (20MG/ML) ONE; -PROPOFOL IV EMULSION 10 MG/ML 20 ML VIAL IV ONE; -SODIUM CHLORIDE 0.9% 500ML 500 ML IV ONE
[2017-03-07 12:23] LABS: HEMATOCRIT 39.3 % (42-52); MEAN CELL VOLUME 93.3 fL (80-100); MEAN CORPUSCULAR HEMOGLOBIN 30.6 pg (25-34); MEAN CORPUSCULAR HGB CONC 32.8 g/dl (32-36); MEAN PLATELET VOLUME 10.1 fL (7.4-10.4); PLATELET COUNT 283 K/uL (130-400); RED BLOOD COUNT 4.21 M/uL (4.7-6.1); WHITE BLOOD COUNT 7.66 K/uL (4.8-10.8)
[2017-03-07 12:41] LABS: ALT/SGPT 34 U/L (12-78); AST/SGOT 24 U/L (15-37); BLOOD UREA NITROGEN 24 mg/dl (7-18); BUN/CREATININE RATIO 24.3 (10-20); CALCIUM 9.1 mg/dl (8.5-10.1); CARBON DIOXIDE 27 mmol/L (21-32); CHLORIDE 105 mmol/L (98-107); GLUCOSE 97 mg/dl (70-99); POTASSIUM 4.4 mmol/L (3.5-5.1); SODIUM 140 mmol/L (136-145)
[2017-03-07 12:53] LABS: ALB/GLOB RATIO 0.6 (0.9-2); ALKALINE PHOSPHATASE 89 U/L (45-117)
[2017-03-07 14:02] LABS: LYME DISEASE AB IGG POS (NEG); LYME DISEASE AB IGM POS (NEG)
[2017-03-11 11:18] LABS: 18KDIGG BAND REACTIVE (NONREACTIVE); 23KDIGG BAND REACTIVE (NONREACTIVE); 23KDIGM BAND REACTIVE (NONREACTIVE); 28KDIGG BAND REACTIVE (NONREACTIVE); 30KDIGG BAND REACTIVE (NONREACTIVE); 39KDIGG BAND REACTIVE (NONREACTIVE); 39KDIGM BAND NONREACTIVE (NONREACTIVE); 41KDIGG BAND REACTIVE (NONREACTIVE); 41KDIGM BAND REACTIVE (NONREACTIVE); 45KDIGG BAND REACTIVE (NONREACTIVE); 58KDIGG BAND REACTIVE (NONREACTIVE); 66KDIGG BAND REACTIVE (NONREACTIVE); 93KDIGG BAND REACTIVE (NONREACTIVE)
== END | disposition home or self-care (01) ==
LOC: C.LAB1850 09:56
PROVIDERS: ATTEND Internal Medicine
DX: M25.50 Pain in unspecified joint (principal); R51 Headache

== ENCOUNTER → 2017-04-18 | Outpatient (CLI) | payer BC ==
[2017-04-18 09:55] LABS: BASO % 0.2 %; BASO ABS # 0.01 K/uL (0-0.2); COMPLETE YES; EOS % 2.4 %; HEMATOCRIT 39.9 % (42-52); LYMPH % 26.4 %; LYMPH ABS # 1.12 K/uL (1.2-3.4); MEAN CELL VOLUME 90.7 fL (80-100); MEAN CORPUSCULAR HEMOGLOBIN 30.7 pg (25-34); MEAN CORPUSCULAR HGB CONC 33.8 g/dl (32-36); MEAN PLATELET VOLUME 10.9 fL (7.4-10.4); MONO % 7.3 %; NEUT % 63.7 %; PLATELET COUNT 157 K/uL (130-400); WHITE BLOOD COUNT 4.24 K/uL (4.8-10.8)
[2017-04-18 10:03] LABS: BLOOD UREA NITROGEN 15 mg/dl (7-18); BUN/CREATININE RATIO 15.7 (10-20); CALCIUM 8.8 mg/dl (8.5-10.1); CARBON DIOXIDE 29 mmol/L (21-32); CHLORIDE 108 mmol/L (98-107); CREATININE 0.94 mg/dl (0.60-1.40); GLUCOSE 89 mg/dl (70-99); POTASSIUM 4.2 mmol/L (3.5-5.1); SODIUM 141 mmol/L (136-145)
[2017-04-18 10:08] LABS: FERRITIN 45.5 ng/ml (8.0-388.0); TOTAL IRON BINDING CAPACITY 292 mcg/dl (250-450)
== END | disposition home or self-care (01) ==
LOC: C.LAB1850 07:50
PROVIDERS: ATTEND Internal Medicine
DX: D64.9 Anemia, unspecified (principal); M25.50 Pain in unspecified joint

== ENCOUNTER → 2017-07-28 | Outpatient (CLI) | payer BC ==
[2017-07-28 13:44] LABS: HEMATOCRIT 42.1 % (42-52); MEAN CELL VOLUME 95.7 fL (80-100); MEAN CORPUSCULAR HEMOGLOBIN 31.6 pg (25-34); MEAN PLATELET VOLUME 12.3 fL (7.4-10.4); PLATELET COUNT 155 K/uL (130-400); WHITE BLOOD COUNT 5.33 K/uL (4.8-10.8)
[2017-07-28 14:07] LABS: CHOLESTEROL/HDL RATIO 1.9; FERRITIN 28.4 ng/ml (8.0-388.0)
== END | disposition home or self-care (01) ==
LOC: C.LABBC 09:34
PROVIDERS: ATTEND Internal Medicine
DX: E78.5 Hyperlipidemia, unspecified (principal); D64.9 Anemia, unspecified